=== PATIENT | female | born 1995 | race Caucasian/White ===

== ENCOUNTER → 2020-12-04 | Outpatient (CLI) | payer OTHER ==
--- NOTE | 2020-12-04 18:35 | US ---
EXAMINATION TYPE: Transabdominal DATE OF EXAM: 12/04/2020 3:51 PM COMPARISON: NONE CLINICAL HISTORY: O46.91 BLEEDING/SPOTTING. Pt states unknown dates, had spotting has now stopped, po sitive beta hCG test. EXAM PERFORMED: Transabdominal (TA) EXAM MEASUREMENTS: GESTATIONAL AGE / DATING Physician Established: Not yet established Dates by LMP: Unknown Dates by First Scan: (10 weeks/6 days) EDC: 06/26/2021 Dates by Current Scan for: (11 weeks/2 days) EDC: 06/23/2021 MATERNAL ANATOMY Uterus: 10.2 x 7.4 x 8.1 cm Right Ovary: 2.8 x 1.3 x 2.7 cm Left Ovary: 3.7 x 1.6 x 2.7 cm Post CDS / Adnexa: wnl Presence of free fluid: No Presence of corpus luteal cyst: Left Ovary= 1.9 x 1.2 x 2.0 cm Presence of subchorionic bleed: No GESTATION / SURVEY CRL: 4.4 cm (11 weeks/2 days) MSD: wnl Yolk Sac (normal less than 6mm): 5mm Heart Rate: 152 bpm Rhythm: Normal IUP: Viable IUP Nuchal Translucency 10-14wks (normal less than 3mm): 1mm Anteverted uterus. Single live intrauterine gestation as gestational sac, yolk sac, and pole ar e present. No free fluid. Both ovaries seen. No suspicious extra ovarian adnexal mass. Within the left ovary there is 1.9 cm p eripheral hypoechoic vascular lesion felt to reflect a corpus luteal cyst. IMPRESSION: Single live intrauterine gestation confirmed, mean crown-rump length 4.4 cm corresponding to 11 week 2 day old fetus.
== END ==
LOC: RADUSWWP 14:39
PROVIDERS: ATTEND Obstetrics & Gynecology
DX: O46.91 Antepartum hemorrhage, unspecified, first trimester (principal); Z3A.11 11 weeks gestation of pregnancy
CPT/HCPCS: 76801; 76813

== ENCOUNTER 2021-01-05 16:35 | Emergency (ER) | payer OTHER ==
[2021-01-05 16:54] VITALS: BP 116/67; PULSE 87; RESP 18; TEMP 99.1
--- NOTE | 2021-01-05 16:56 | ED ---
General Adult HPI <Darren Weaver - Last Filed: 01/05/21 16:52> <Mary Zacarias - Last Filed: 01/05/21 17:12> - General Stated complaint: 16 wks preg, bleeding - History of Present Illness Initial comments: 25-year-old female, , 16 weeks presents to the emergency department with a chief complaint of vaginal bleeding. Patient reports intermittent vaginal bleeding since the beginning of her . She was advised to come to the emergency department for evaluation if the bleeding continues. States the bleeding is not worse than usual at this time. States today she noticed it was bright red in color. Reports some lower abdominal cramping. (Darren Weaver) - Related Data Allergies Allergy/AdvReac Type Severity Reaction Status Date / Time No Known Allergies Allergy Verified 01/05/21 16:54 Review of Systems ROS Other: All systems not noted in ROS Statement are negative. <Darren Weaver - Last Filed: 01/05/21 16:52> ROS Other: All systems not noted in ROS Statement are negative. <Mary Zacarias - Last Filed: 01/05/21 17:12> ROS Statement: Those systems with pertinent positive or pertinent negative responses have been documented in the HPI. Course Vital Signs 01/05/21 16:51 Temperature 99.1 F Pulse Rate 87 Respiratory 18 Rate Blood Pressure 116/67 O2 Sat by Pulse 100 Oximetry Medical Decision Making <Mray Zacarias - Last Filed: 01/05/21 17:12> - Medical Decision Making The patient was seen and evaluated, history is obtained from the patient and review of medical record. female Like 15-16 weeks presenting with persistent intermittent vaginal bleeding. Patient purchased spotting at night. She is been evaluated by this one month ago but symptoms persist. She's not certain of the cause that she return to the ER for reevaluation. No heavy bleeding does not have to wear a pad. No active bleeding today. That ultrasound was performed, there is a single intrauterine fetus, fetus is active, heart rate is 142 She was reassured by these findings. She has established follow-up at the [facility] gynecology this week. Patient is comfortable with the plan for discharge home. (Mary Zacarias) Disposition <Darren Weaver - Last Filed: 01/05/21 16:52> Is patient prescribed a controlled substance at d/c from ED?: No <Mary Zacarias - Last Filed: 01/05/21 17:12> Clinical Impression: Vaginal bleeding in Disposition: HOME SELF-CARE Additional Instructions: Strict pelvic rest meaning no intercourse until you are evaluated by Gynecology Follow up at [facility] this week as scheduled Referrals: Samuel Huerta MD [Primary Care Provider] - 1-2 days
== END 2021-01-05 17:44 | disposition home or self-care (01) ==
LOC: EC 16:35
DX: O46.92 Antepartum hemorrhage, unspecified, second trimester (principal); Z3A.16 16 weeks gestation of pregnancy
CPT/HCPCS: 99283

== ENCOUNTER 2021-02-09 22:20 | Outpatient (CLI) | payer OTHER ==
[2021-02-09 22:50] VITALS: BP 114/58; PULSE 92; RESP 16; TEMP 98
[2021-02-09 23:31] LABS: Basophils # (A) 0.1 k/uL (0-0.2); Basophils % (A) 1 %; Eosinophils # (A) 0.4 k/uL (0-0.7); Eosinophils % (A) 4 %; HGB 10.4 gm/dL (11.4-16.0); Lymphocytes # (A) 2.2 k/uL (1.0-4.8); Lymphocytes % (A) 21 %; MCH 33.9 pg (25.0-35.0); MCHC 35.8 g/dL (31.0-37.0); MCV 94.6 fL (80.0-100.0); Mean Platelet Volume 7.5; Monocytes # (A) 0.5 k/uL (0-1.0); Monocytes % (A) 5 %; Neutrophils # (A) 7.4 k/uL (1.3-7.7); Neutrophils % (A) 70 %; Platelet Count 260 k/uL (150-450); RBC 3.07 m/uL (3.80-5.40); WBC 10.7 k/uL (3.8-10.6)
--- NOTE | 2021-02-09 23:56 | P.MSEPDOC ---
Presenting Problems - Arrival Data Date of Arrival on Unit: 02/09/21 Time of Arrival on Unit: 22:20 Mode of Transport: Portable - Complaint OB-Reason for Admission/Chief Complaint: Vaginal Bleeding Comment: hx placenta previa Medical History - Information : 4 Para: 3 Term: 3 : 3 Abortions: Spontaneous or Elective: 0 Number of Living Children: 3 - Gestational Age Gestational Age by SHAKEEL (wks/days): 20 Weeks and 6 Days - History Complications: Placenta Previa Review of Systems - Review of Systems Constitutional: No problems Breast: No problems ENT: No problems Cardiovascular: No problems Respiratory: No problems Gastrointestinal: No problems Genitourinary: No problems Musculoskeletal: No problems Neurological: No problems Skin: No problems Vital Signs - Temperature Temperature: 98.0 F - Pulse Right Brachial Pulse Rate: 92 Pulse Assessment Method: Automatic Cuff - Respirations Respiratory Rate: 16 Oxygen Delivery Method: Room Air O2 Sat by Pulse Oximetry: 99 - Blood Pressure Right Arm Supine Blood Pressure: 114/58 Blood Pressure Mean: 76 Blood Pressure Source: Automatic Cuff Medical Screen Scoring (Pre) - Cervical Exam Dilation: Exam Deferred Effacement: Exam Deferred Membranes: Intact - Uterine Contractions Frequency: N/A - Maternal Vital Signs Maternal Temperature: N/A - Maternal Trauma Maternal Trauma: N/A - Assessment - Baby A Baseline FHR: 150 - Total Score - Baby A Total Score - Baby A: 0 - Total Score - Baby B Total Score - Baby B: 0 - Total Score - Baby C Total Score - Baby C: 0 - Level of Risk - Baby A Level of Risk - Baby A: Low (0-5) - Level of Risk - Baby B Level of Risk - Baby B: Low (0-5) - Level of Risk - Baby C Level of Risk - Baby C: Low (0-5) Physician Notification (Pre) - Physician Notified Physician Notified Date: 02/09/21 Physician Notified Time: 22:30 - Notification Comment Comment: U/S Medical Screen Scoring (Post) - Cervical Exam Dilation: Exam Deferred Effacement: Exam Deferred - Uterine Contractions Frequency: N/A - Maternal Vital Signs Maternal Temperature: N/A - Pain Assessment Pain Intensity: 0 Pain Behavior: None Exhibited - Assessment - Baby A Heart Rate: 140 - Total Score Total Score - Baby A: 0 Total Score - Baby B: 0 Total Score - Baby C: 0 - Post Treatment Level of Risk Post Treatment Level of Risk - Baby A: Low (0-5) Post Treatment Level of Risk - Baby B: Low (0-5) Post Treatment Level of Risk - Baby C: Low (0-5) Physician Notification (Post) - Physician Notified Physician Notified Date: 02/09/21 Physician Notified Time: 23:35 Physician/Practitioner Notified:: Deanna Spoke With: Deanna New Order Received: Yes - Notification Comment Comment: HgB result given Disposition - Disposition OB Disposition: Discharge to home Discharge Date: 02/09/21 Discharge Time: 23:40 I agree with the RN Medical Screening Exam: Yes Case reviewed; plan agreed upon as documented in EMR&OBIX.: Yes Diagnosis: COMPLETE PLACENTA PREVIA WITH HEMORRHAGE, SECOND TRIMESTER (Patient presents to labor and delivery after calling me earlier this evening with complaints of vaginal bleeding. Patient has a known complete placenta previa. Gestational age is 20-6/7 weeks. Patient's had on and off bleeding throughout the . Patient states that she had not had much bleeding until this evening when she had an episode of throwing up and began having some copious amount of bleeding. Examination here by myself shows minimal amount of bleeding or some dark red blood on her pad. Globin is 10.4. This point there is no evidence of ongoing hemorrhage bowel asked her to continue pelvic rest at home. She'll follow up with Dr. Whiting this Tuesday.)
== END 2021-02-09 23:40 | disposition home or self-care (01) ==
LOC: FBPOP 22:20
PROVIDERS: ATTEND Obstetrics & Gynecology
DX: O44.12 Complete placenta previa with hemorrhage, second trimester (principal); Z3A.20 20 weeks gestation of pregnancy
CPT/HCPCS: 85025; G0463; 99215

== ENCOUNTER 2021-03-09 18:14 | Outpatient (CLI) | payer OTHER ==
[2021-03-09 18:34] LABS: Glucose,Whole Blood 86 mg/dL (75-99)
[2021-03-09] MEDS: LACTATED RINGERS 1,000 ML IV SCH ×2 (18:54→19:47)
[2021-03-09 19:29] LABS: Appearance,Urine Cloudy (Clear); Bacteria,Urine Rare /hpf; Bilirubin,Urine Negative (Negative); Blood,Urine Negative (Negative); Budding Yeast,Urine Few /hpf; Color,Urine Yellow; Glucose,Urine (UA) Negative (Negative); Ketones,Urine 2+ (Negative); Leukocyte Esterase,Urine Trace (Negative); Mucus,Urine Many /hpf; Nitrite,Urine Negative (Negative); PH, Urine 7.5 (5.0-8.0); Protein,Urine Trace (Negative); RBC,Urine 5 /hpf (0-5); Specific Gravity,Urine 1.018 (1.001-1.035); Squamous Epithelial Cell,Urine 1 /hpf (0-4); WBC,Urine 9 /hpf (0-5)
[2021-03-09 20:48] VITALS: BP 120/73; PULSE 73; RESP 16; TEMP 98.7
--- NOTE | 2021-03-09 21:30 | P.MSEPDOC ---
Presenting Problems - Arrival Data Date of Arrival on Unit: 03/09/21 Time of Arrival on Unit: 18:14 Mode of Transport: Ambulatory - Complaint OB-Reason for Admission/Chief Complaint: Ant Bleeding Comment: Patient presents to triage with a bleeding after she threw up today. Patient. noted some bleeding after she threw up today. Denies leaking of fluid. Patient states. she noted the bleeding around 1500 today so she called the office and they told her to. go to Labor and Delivery. RN at [facility] called around 1530 to report that. patient would be coming to the unit in approximately 1 hour. Medical History - Information : 4 Para: 2 Term: 2 : 0 Abortions: Spontaneous or Elective: 0 Number of Living Children: 2 - Gestational Age Gestational Age by SHAKEEL (wks/days): 24 Weeks and 4 Days - History Complications: Placenta Previa Review of Systems - Review of Systems Constitutional: No problems Breast: No problems ENT: No problems Cardiovascular: No problems Respiratory: No problems Gastrointestinal: No problems Genitourinary: No problems Musculoskeletal: No problems Neurological: No problems Skin: No problems Vital Signs - Temperature Temperature: 98.7 F Temperature Source: Oral - Pulse Right Brachial Pulse Rate: 73 Pulse Assessment Method: Automatic Cuff - Respirations Respiratory Rate: 16 Oxygen Delivery Method: Room Air - Blood Pressure Right Arm Blood Pressure: 120/73 Blood Pressure Mean: 88 Blood Pressure Source: Automatic Cuff Medical Screen Scoring (Pre) - Cervical Exam Dilation: Exam Deferred Effacement: Exam Deferred Membranes: Intact - Uterine Contractions Frequency: N/A Duration: N/A Intensity: N/A - Maternal Vital Signs Maternal Temperature: N/A Signs of Preeclampsia: N/A Maternal Respirations: N/A - Maternal Trauma Maternal Trauma: N/A - Assessment - Baby A Baseline FHR: 135 Heart Rate - NICHD Category: Category I (Normal) = 0 - Total Score - Baby A Total Score - Baby A: 0 - Total Score - Baby B Total Score - Baby B: 0 - Total Score - Baby C Total Score - Baby C: 0 - Level of Risk - Baby A Level of Risk - Baby A: Low (0-5) - Level of Risk - Baby B Level of Risk - Baby B: Low (0-5) - Level of Risk - Baby C Level of Risk - Baby C: Low (0-5) Physician Notification (Pre) - Physician Notified Physician Notified Date: 03/09/21 Physician Notified Time: 18:44 New Order Received: Yes - Notification Comment Comment: [id number] Dr Bansal called, report given re: pt complaints incl vomiting and vaginal. bleeding today, gentle spec exam with no bleeding noted, fhr & contraction pattern. Order received for IV hydration and UA. 1942 Orders to give pt another bag of LR and then she may be d/c home and follow up as planned. Disposition - Disposition OB Disposition: Discharge to home, Written follow up instructions reviewed Discharge Date: 03/09/21 Discharge Time: 20:40 I agree with the RN Medical Screening Exam: Yes Case reviewed; plan agreed upon as documented in EMR&OBIX.: Yes Diagnosis: VOMITING OF , UNSPECIFIED Additional Diagnoses: Placenta previa Spotting
== END 2021-03-09 20:37 | disposition home or self-care (01) ==
LOC: FBPOP 18:14
PROVIDERS: ATTEND Obstetrics & Gynecology
DX: O21.9 Vomiting of pregnancy, unspecified (principal); O44.12 Complete placenta previa with hemorrhage, second trimester; Z3A.24 24 weeks gestation of pregnancy
CPT/HCPCS: 96360; 96361; 81001; G0463; 99214

== ENCOUNTER 2021-06-18 06:00 | Inpatient (IN) | payer OTHER ==
[2021-06-18] MEDS ORDERED: OXYTOCIN 10 UNIT/ML 1 ML VIAL IM PRN (06:52)
[2021-06-18] MEDS ORDERED: TERBUTALINE 1 MG/ML VIAL SQ PRN (06:52)
[2021-06-18] MEDS ORDERED: AMPICILLIN 2,000 MG in SODIUM CHLORIDE 0.9% 100 ML IVPB STA (06:52)
[2021-06-18] MEDS ORDERED: LIDOCAINE 0.5% (PF) 5 MG/ML (50 ML SDV) SQ PRN (06:52)
[2021-06-18] MEDS ORDERED: CARBOPROST TROMETHAMINE 250 MCG/ML 1 ML AMP IM PRN (06:52)
[2021-06-18] MEDS ORDERED: METHYLERGONOVINE 0.2 MG/ML 1 ML AMP IM PRN (06:52)
[2021-06-18] MEDS: LACTATED RINGERS 1,000 ML IV SCH ×2 (07:08→10:08)
[2021-06-18 07:09] LABS: Basophils # (A) 0.1 k/uL (0-0.2); Basophils % (A) 1 %; Eosinophils # (A) 0.3 k/uL (0-0.7); Eosinophils % (A) 2 %; HCT 36.4 % (34.0-46.0); HGB 12.9 gm/dL (11.4-16.0); Lymphocytes # (A) 2.5 k/uL (1.0-4.8); Lymphocytes % (A) 18 %; MCH 34.1 pg (25.0-35.0); MCHC 35.4 g/dL (31.0-37.0); MCV 96.3 fL (80.0-100.0); Mean Platelet Volume 8.7; Monocytes # (A) 0.6 k/uL (0-1.0); Monocytes % (A) 4 %; Neutrophils # (A) 10.3 k/uL (1.3-7.7); Neutrophils % (A) 74 %; Platelet Count 234 k/uL (150-450); RBC 3.78 m/uL (3.80-5.40); RDW 12.4 % (11.5-15.5)
[2021-06-18] MEDS: OXYTOCIN 30 UNITS/500 ML NS 30 UNIT in SALINE 1 500ML.BAG IV SCH ×2 (07:09→11:41)
[2021-06-18] MEDS ORDERED: fentaNYL (PF) 50 MCG/ML 5 ML AMP ONE (10:33)
[2021-06-18] MEDS ORDERED: SODIUM CHLORIDE 0.9% 100 ML BAG ONE (10:33)
[2021-06-18] MEDS ORDERED: ROPIVACAINE 5MG/ML 20ML VIAL ONE (10:33)
[2021-06-18] MEDS ORDERED: AMPICILLIN 1,000 MG in SODIUM CHLORIDE 0.9% 50 ML IVPB SCH (11:00)
[2021-06-18] MEDS ORDERED: LANOLIN CREAM 5 GM TUBE TOPICAL PRN (11:27)
[2021-06-18] MEDS ORDERED: ACETAMINOPHEN TAB 325 MG TAB PO PRN (11:27)
[2021-06-18] MEDS ORDERED: HYDROCORTISONE 2.5% RECTAL CREAM 30 GM TUBE RECTAL PRN (11:27)
[2021-06-18] MEDS ORDERED: diphenhydrAMINE 25 MG CAP PO PRN (11:27)
[2021-06-18] MEDS ORDERED: diphenhydrAMINE 50 MG CAP PO PRN (11:27)
[2021-06-18] MEDS ORDERED: ZOLPIDEM 5 MG TAB PO PRN (11:27)
[2021-06-18] MEDS ORDERED: BENZOCAINE/MENTHOL SPRAY 1 GM/SPRAY AEROSOL TOPICAL PRN (11:27)
[2021-06-18] MEDS ORDERED: diphenhydrAMINE 50 MG/ML 1 ML VIAL IVP PRN ×2 (11:27)
[2021-06-18] MEDS ORDERED: SIMETHICONE 80 MG CHEWABLE PO PRN (11:27)
--- NOTE | 2021-06-18 11:30 | P.HPOB ---
History of Present Illness H&P Date: 06/18/21 Chief Complaint: Intrauterine at term: Induction of labor Alexandra is a 25-year-old at 39 weeks gestation arise for induction of labor. Her course was, K by a marginal previa that resolved. She did see maternal medicine for same but she was not seen once it resolved. The remainder for Precis course generally was unremarkable. She did have a small for gestational age baby to a certain degree but the last ultrasound was at 19% growth. All questions are answered for her prior to proc she is dilated to 3 cm 80% effaced -2 station artificial rupture membranes was performed and clear fluid is noted. We'll also plan Pitocin augmentation of labor. Past Medical History Past Medical History: No Reported History History of Any Multi-Drug Resistant Organisms: None Reported Past Surgical History: Cholecystectomy, Tonsillectomy Past Anesthesia/Blood Transfusion Reactions: No Reported Reaction Past Psychological History: No Psychological Hx Reported Smoking Status: Never smoker Past Alcohol Use History: Unable to Obtain Past Drug Use History: None Reported Medications and Allergies Home Medications Medication Instructions Recorded Confirmed Type Pnv No.95/Ferrous Fum/Folic AC 1 each PO DAILY 02/09/21 06/18/21 History [ Multivitamin Tablet] Allergies Allergy/AdvReac Type Severity Reaction Status Date / Time No Known Allergies Allergy Verified 06/18/21 06:45 Exam Osteopathic Statement: *. No significant issues noted on an osteopathic structural exam other than those noted in the History and Physical/Consult. Vital Signs Temp Pulse Resp BP 06/18/21 06:44 98.3 F 88 16 130/79 Intake and Output 06/17/21 06/18/21 06/18/21 22:59 06:59 14:59 Other: Weight 53.977 kg - OBG Physical Exam Breast: both: normal (no masses) Abdomen: bowel sounds normal, no diffuse tenderness, no bruit present, no guarding noted, no hepatomegaly, no splenomegaly, no mass Vulva: both: normal Vagina: normal moisture, no discharge Cervix: no lesion, no discharge Uterus: normal size, normal contour Adnexa: both: normal Anus/Rectum: normal perianal skin, no rectal mass, no hemorrhoids, heme negative Results Result Diagrams: 06/18/21 06:50 Abnormal Lab Results - Last 24 Hours (Table) 06/18/21 Range/Units 06:50 WBC 14.0 H (3.8-10.6) k/uL RBC 3.78 L (3.80-5.40) m/uL Neutrophils # 10.3 H (1.3-7.7) k/uL
--- NOTE | 2021-06-18 11:32 | P.PROBDLV ---
Vaginal Delivery Note - . Vaginal Delivery Note: Alexandra progressed to complete and pushing with spontaneous vaginal delivery of a viable male over an intact perineum. Following delivery of the head from left occiput anterior position a nuchal cord 1 was noted and easily reduced. Anterior posterior shoulders were then easily delivered followed by the remainder the baby. Mouth nares were then bulb suctioned baby was placed on mother's abdomen where the umbilical cord was allowed to pulsate for 30 seconds prior to clamping and cutting. Once is accomplished nursery personnel was present at [facility]. Placenta was then delivered intact Pitocin was added to the IV. There is some increase in bleeding initially but seems to of abated and the uterus is firm and well below the umbilicus. We'll continue to monitor this closely. scores were 9 and 9 at one and 5 minutes [place] and the weight was 6 lbs. 15 oz.
[2021-06-18] MEDS: IBUPROFEN 600 MG TAB PO SCH ×3 (11:41→22:30)
[2021-06-18] MEDS ORDERED: ONDANSETRON ODT 4 MG TAB PO PRN (17:26)
[2021-06-18] MEDS: SENNOSIDES-DOCUSATE SODIUM 1 EACH TAB PO SCH (22:30)
[2021-06-19 07:04] LABS: Basophils # (A) 0.1 k/uL (0-0.2); Basophils % (A) 1 %; Eosinophils # (A) 0.3 k/uL (0-0.7); Eosinophils % (A) 2 %; HCT 27.2 % (34.0-46.0); Lymphocytes # (A) 2.6 k/uL (1.0-4.8); Lymphocytes % (A) 16 %; MCH 34.8 pg (25.0-35.0); MCHC 35.5 g/dL (31.0-37.0); MCV 97.9 fL (80.0-100.0); Mean Platelet Volume 8.8; Monocytes # (A) 0.8 k/uL (0-1.0); Monocytes % (A) 5 %; Neutrophils # (A) 12.5 k/uL (1.3-7.7); Neutrophils % (A) 76 %; Platelet Count 209 k/uL (150-450); RBC 2.77 m/uL (3.80-5.40); RDW 12.6 % (11.5-15.5); WBC 16.6 k/uL (3.8-10.6)
[2021-06-19 07:15] LABS: HGB 9.7 gm/dL (11.4-16.0)
[2021-06-19] MEDS: IBUPROFEN 600 MG TAB PO SCH ×3 (08:12→23:11)
[2021-06-19] MEDS: SENNOSIDES-DOCUSATE SODIUM 1 EACH TAB PO SCH ×2 (08:12→19:54)
--- NOTE | 2021-06-19 08:12 | P.PNOBGVD ---
Subjective - Subjective Principal diagnosis: day 1 Interval history: Patient is doing very well this morning. She is ambulating, voiding tolerating her diet. She is voicing no complaints. Baby is doing well. Baby did not receive 2 doses and about expect for group B strep prophylaxis and will therefore kept until tomorrow. Plan circumcision today and return for Motrin and breast pump were provided. All the questions are answered for this time. She is stable this time. Continue current care. Patient reports: Reports appetite normal, Reports voiding normally, Reports pain well controlled, Reports ambulating normally : doing well Objective - Latest Vital Signs Latest vital signs: Vital Signs Temp Pulse Resp BP 06/19/21 04:00 98.4 F 75 8 L 119/77 06/19/21 00:00 98.3 F 84 18 120/77 06/18/21 20:00 98.4 F 77 18 119/76 06/18/21 15:56 98.7 F 76 16 100/63 06/18/21 13:30 98.0 F 77 18 116/57 06/18/21 12:37 98.3 F 71 18 117/70 06/18/21 12:30 97.1 F L 65 18 115/69 06/18/21 12:15 97.3 F L 66 18 110/58 06/18/21 12:00 97.1 F L 73 18 109/70 06/18/21 11:45 97.0 F L 76 18 126/60 06/18/21 11:30 97.3 F L 95 18 142/63 Intake and Output 06/18/21 06/19/21 06/19/21 22:59 06:59 14:59 Other: # Voids 1 2 - Labs Labs: Abnormal Lab Results - Last 24 Hours (Table) 06/19/21 Range/Units 06:48 WBC 16.6 H (3.8-10.6) k/uL RBC 2.77 L (3.80-5.40) m/uL Hgb 9.7 L D (11.4-16.0) gm/dL Hct 27.2 L (34.0-46.0) % Neutrophils # 12.5 H (1.3-7.7) k/uL
[2021-06-19 09:28] VITALS: RESP 16
[2021-06-20 08:04] VITALS: BP 131/65; PULSE 74; TEMP 98.1
--- NOTE | 2021-06-20 09:58 | P.DS ---
Providers Date of admission: 06/18/21 06:33 Expected date of discharge: 06/20/21 Attending physician: Tanmay Rosa Primary care physician: Stated None - Discharge Diagnosis(es) (1) Normal vaginal delivery Current Visit: Yes Status: Acute Hospital Course: She presented for induction of labor. She underwent a normal vaginal delivery. Her course was uncomplicated. She denies nausea, vomiting, chest pain, shortness of breath or any calf pain. She'll be discharged home day #2 in stable condition to follow-up with Dr. Whiting in 6 weeks. Plan - Discharge Summary Discharge Rx Participant: No New Discharge Prescriptions: New Ibuprofen [Motrin] 600 mg PO Q6HR PRN #30 tab PRN Reason: Pain No Action Pnv No.95/Ferrous Fum/Folic AC [ Multivitamin Tablet] 1 each PO DAILY Discharge Medication List Pnv No.95/Ferrous Fum/Folic AC [ Multivitamin Tablet] 1 each PO DAILY 02/09/21 [History] Ibuprofen [Motrin] 600 mg PO Q6HR PRN #30 tab 06/19/21 [Rx] Follow up Appointment(s)/Referral(s): Tanmay Rosa DO [Doctor of Osteopathic Medicine] - 07/27/21 11:00 am Activity/Diet/Wound Care/Special Instructions: Lifting, limit stairs and driving, and pelvic rest. If any high temperatures, heavy bleeding, or severe pain call my office Discharge Disposition: HOME SELF-CARE
== END 2021-06-20 11:30 | disposition home or self-care (01) | DRG 807 ==
LOC: 4FBP 06:33
PROVIDERS: ADMIT Obstetrics & Gynecology; ATTEND Obstetrics & Gynecology
PROC: 10E0XZZ Delivery of Products of Conception, External Approach (ICD-10-PCS; principal; 2021-06-18)
DX: O36.5930 Maternal care for other known or suspected poor fetal growth, third trimester, not applicable or unspecified (principal); Z37.0 Single live birth; Z3A.39 39 weeks gestation of pregnancy; O69.81X0 Labor and delivery complicated by cord around neck, without compression, not applicable or unspecified
CPT/HCPCS: 85025; 86850; 86900; 86901

== ENCOUNTER 2023-03-08 09:59 | Emergency (ER) | payer OTHER ==
[2023-03-08 10:04] VITALS: BP 136/90; PULSE 93; RESP 20; TEMP 98.4
[2023-03-08] MEDS ORDERED: SODIUM CHLORIDE 0.9% 1,000 ML IV ONE (10:51)
[2023-03-08 11:43] LABS: Basophils # (A) 0.1 k/uL (0-0.2); Basophils % (A) 1 %; Eosinophils # (A) 0.1 k/uL (0-0.7); Eosinophils % (A) 1 %; HCT 43.8 % (34.0-46.0); HGB 14.6 gm/dL (11.4-16.0); Lymphocytes # (A) 2.3 k/uL (1.0-4.8); Lymphocytes % (A) 15 %; MCH 32.7 pg (25.0-35.0); MCHC 33.3 g/dL (31.0-37.0); MCV 98.4 fL (80.0-100.0); Mean Platelet Volume 7.6; Monocytes # (A) 0.4 k/uL (0-1.0); Monocytes % (A) 3 %; Neutrophils % (A) 80 %; Platelet Count 332 k/uL (150-450); RBC 4.45 m/uL (3.80-5.40); RDW 11.7 % (11.5-15.5)
[2023-03-08 11:46] LABS: ALT 21 U/L (4-34); AST 32 U/L (14-36); African American GFR (CKD) >90 (>60 ml/min/1.73 sqM); Alkaline Phosphatase 89 U/L (38-126); Anion Gap 13 mmol/L; Blood Urea Nitrogen 9 mg/dL (7-17); Calcium 9.5 mg/dL (8.4-10.2); Carbon Dioxide 25 mmol/L (22-30); Chloride 101 mmol/L (98-107); Glucose 107 mg/dL (74-99); Non-African American GFR(CKD) >90 (>60 ml/min/1.73 sqM); Potassium 3.8 mmol/L (3.5-5.1); Sodium 139 mmol/L (137-145); Total Bilirubin 0.6 mg/dL (0.2-1.3); Total Protein 8.1 g/dL (6.3-8.2)
--- NOTE | 2023-03-08 12:06 | ED ---
General Adult HPI - General Chief complaint: Vaginal Bleeding Stated complaint: Vaginal bleeding Time Seen by Provider: 03/08/23 10:51 Source: patient, RN notes reviewed Mode of arrival: ambulatory Limitations: no limitations - History of Present Illness Initial comments: 27-year-old female who is to presents to the emergency department with a chief complaint of vaginal bleeding. Patient reports that she is approximately 6-7 weeks . she is reporting vaginal bleeding for the last 3 days. She reports it was light and has since heavier. She has passed one small clot. She denies any dizziness, lightheadedness, chest pain, s hortness of breath, nausea, vomiting. She is complaining of intermittent right lower quadrant abdominal pain that is sharp. She reports no Primary OBGYN . She reports last menstrual period dates of 01/22/2023. denies injury or trauma - Related Data Home Medications Medication Instructions Recorded Confirmed No Known Home Medications 03/08/23 03/08/23 Allergies Allergy/AdvReac Type Severity Reaction Status Date / Time No Known Allergies Allergy Verified 03/08/23 12:44 Review of Systems ROS Statement: Those systems with pertinent positive or pertinent negative responses have been documented in the HPI. ROS Other: All systems not noted in ROS Statement are negative. Past Medical History Past Medical History: No Reported History History of Any Multi-Drug Resistant Organisms: None Reported Past Surgical History: Cholecystectomy, Tonsillectomy Past Anesthesia/Blood Transfusion Reactions: No Reported Reaction Past Psychological History: No Psychological Hx Reported Smoking Status: Current every day smoker Past Alcohol Use History: Occasional Past Drug Use History: None Reported General Exam - General Exam Comments Initial Comments: General: Alert, in no acute distress Head: atraumatic normocephalic. Eyes PERRL, EOMI intact, mucous membranes moist Respiratory: Lungs clear to auscultation bilaterally Cardiovascular: rate regular rate and rhythm Abdominal: Soft without guarding or rebound Extremities: Normal inspection with full range of motion and normal capillary refill Neuroogic: alert and oriented 3, CN II-XII intact, able to ambulate with steady gait Skin: warm dry and intact with normal color : external exam is without any rashes, lesions, erythema. Vaginal canal with small amount are dark blood in the vaginal vault that is easily cleared. Cervical os is visualized and is closed. There is no cervical motion tenderness for abnormal adnexal tenderness. Pelvic exam performed with Diana moseley RN present. Limitations: no limitations Course Vital Signs 03/08/23 10:00 Temperature 98.4 F Pulse Rate 93 Respiratory 20 Rate Blood Pressure 136/90 O2 Sat by Pulse 99 Oximetry Medical Decision Making - Medical Decision Making Was pt. sent in by a medical professional or institution (ROSINA Bautista, WORKFLOW DEVELOPER, urgent care, hospital, or assisted...) When possible be specific @ -[No] Did you speak to anyone other than the patient for history (EMS, parent, family, police, friend...)? What history was obtained from this source @ -[No] Did you review nursing and triage notes (agree or disagree)? Why? @ -[I reviewed and agree with nursing and triage notes] Were old charts reviewed (outside hosp., previous admission, EMS record, old EKG, old radiological studies, urgent care reports/EKG's, assisted records)? Report findings @ -[No old charts were reviewed] Differential Diagnosis (chest pain, altered mental status, abdominal pain women, abdominal pain men, vaginal bleeding, weakness, fever, dyspnea, syncope, headache, dizziness, GI bleed, back pain, seizure, CVA, palpatations, mental health, musculoskeletal)? @ -[not applicable] EKG interpreted by me (3pts min.). @ -[As above] X-rays interpreted by me (1pt min.). @ -[None done] CT interpreted by me (1pt min.). @ -[None done] U/S interpreted by me (1pt. min.). @ -vaginal ultrasound does not show an intrauterine at this time. What testing was considered but not performed or refused? (CT, X-rays, U/S, labs)? Why? @ -[None] What meds were considered but not given or refused? Why? @ -[None] Did you discuss the management of the patient with other professionals (professionals i.e. ROSINA Bautista, WORKFLOW DEVELOPER, lab, RT, psych nurse, social sciences lecturer, product development carpenter, teacher, access control officer, showcase maker)? Give summary @ -[No] Was smoking cessation discussed for >3mins.? @ -[No] Was critical care preformed (if so, how long)? @ -[No] Were there social determinants of health that impacted care today? How? (Homelessness, low income, unemployed, alcoholism, drug addiction, transportation, low edu. Level, literacy, decrease access to med. care, prison, rehab)? @ -[No] Was there de-escalation of care discussed even if they declined (Discuss DNR or withdrawal of care, Hospice)? DNR status @ -[No] What co-morbidities impacted this encounter? (DM, HTN, Smoking, COPD, CAD, Cancer, CVA, ARF, Chemo, Hep., AIDS, mental health diagnosis, sleep apnea, morbid obesity)? @ -[None] Was patient admitted / discharged? Hospital course, mention meds given and route, prescriptions, significant lab abnormalities, going to OR and other pertinent info. @ -Discharge. This is a 27 year-old female who presents the emergency department with vaginal bleeding.. Patient had a thorough history and physical exam performed while in the ED. Physical exam reveals scant amount of dark red blood in the vaginal vault. Cervical os is closed. No adnexal tenderness. Patient had lab work and imaging performed. HCG total beta results 600. Ultrasound does not reveal an intrauterine at this time.I discussed the results in detail with the patient verbalized understanding and all questions were addressed. she was given a prescription for beta hCG to be drawn within 48 hours. She was given a list of CHEMICAL HANDLER within the area. Return precautions were discussed at length. Patient will be discharged in stable co ndition. Case discussed with BERNARDA Bolivar who agrees with plan of care. Undiagnosed new problem with uncertain prognosis? @ -[No] Drug Therapy requiring intensive monitoring for toxicity (Heparin, Nitro, Insulin, Cardizem)? @ -[No] Were any procedures done? @ -[No] Diagnosis/symptom? @ -vaginal bleeding - Early VS. threatened miscarriage Acute, or Chronic, or Acute on Chronic? @ -Acute Uncomplicated (without systemic symptoms) or Complicated (systemic symptoms)? @ -uncomplicated Side effects of treatment? @ -[No] Exacerbation, Progression, or Severe Exacerbation? @ -[No] Poses a threat to life or bodily function? How? (Chest pain, [place], [place], pneumonia, PE, COPD, DKA, ARF, appy, cholecystitis, CVA, Diverticulitis, Homicidal, Suicidal, threat to staff... and all critical care pts) @ -Low likelihood - Lab Data Result diagrams: 06/06/23 11:21 03/08/23 11:21 Lab Results 03/08/23 03/08/23 03/08/23 Range/Units 11:20 11:21 11:21 WBC 15.0 H (3.8-10.6) k/uL RBC 4.45 (3.80-5.40) m/uL Hgb 14.6 (11.4-16.0) gm/dL Hct 43.8 (34.0-46.0) % MCV 98.4 (80.0-100.0) fL MCH 32.7 (25.0-35.0) pg MCHC 33.3 (31.0-37.0) g/dL RDW 11.7 (11.5-15.5) % Plt Count 332 (150-450) k/uL MPV 7.6 Neutrophils % 80 % Lymphocytes % 15 % Monocytes % 3 % Eosinophils % 1 % Basophils % 1 % Neutrophils # 12.0 H (1.3-7.7) k/uL Lymphocytes # 2.3 (1.0-4.8) k/uL Monocytes # 0.4 (0-1.0) k/uL Eosinophils # 0.1 (0-0.7) k/uL Basophils # 0.1 (0-0.2) k/uL Sodium 139 (137-145) mmol/L Potassium 3.8 (3.5-5.1) mmol/L Chloride 101 (98-107) mmol/L Carbon Dioxide 25 (22-30) mmol/L Anion Gap 13 mmol/L BUN 9 (7-17) mg/dL Creatinine 0.57 (0.52-1.04) mg/dL Est GFR (CKD-EPI)AfAm >90 (>60 ml/min/1.73 sqM) Est GFR (CKD-EPI)NonAf >90 (>60 ml/min/1.73 sqM) Glucose 107 H (74-99) mg/dL Calcium 9.5 (8.4-10.2) mg/dL Total Bilirubin 0.6 (0.2-1.3) mg/dL AST 32 (14-36) U/L ALT 21 (4-34) U/L Alkaline Phosphatase 89 (38-126) U/L Total Protein 8.1 (6.3-8.2) g/dL Albumin 5.0 (3.5-5.0) g/dL HCG, Quant 603.0 mIU/mL Urine Color Urine Appearance (Clear) Urine pH (5.0-8.0) Ur Specific [place] (1.001-1.035) Urine Protein (Negative) Urine Glucose (UA) (Negative) Urine Ketones (Negative) Urine Blood (Negative) Urine Nitrite (Negative) Urine Bilirubin (Negative) Urine Urobilinogen (<2.0) mg/dL Ur Leukocyte Esterase (Negative) Urine RBC (0-5) /hpf Urine WBC (0-5) /hpf Urine WBC Clumps (None) /hpf Ur Squamous Epith Cells (0-4) /hpf Urine Bacteria (None) /hpf Urine Mucus (None) /hpf Blood Type B Positive Blood Type Recheck B Pos Bld Type Recheck Status No 03/08/23 Range/Units 11:29 WBC (3.8-10.6) k/uL RBC (3.80-5.40) m/uL Hgb (11.4-16.0) gm/dL Hct (34.0-46.0) % MCV (80.0-100.0) fL MCH (25.0-35.0) pg MCHC (31.0-37.0) g/dL RDW (11.5-15.5) % Plt Count (150-450) k/uL MPV Neutrophils % % Lymphocytes % % Monocytes % % Eosinophils % % Basophils % % Neutrophils # (1.3-7.7) k/uL Lymphocytes # (1.0-4.8) k/uL Monocytes # (0-1.0) k/uL Eosinophils # (0-0.7) k/uL Basophils # (0-0.2) k/uL Sodium (137-145) mmol/L Potassium (3.5-5.1) mmol/L Chloride (98-107) mmol/L Carbon Dioxide (22-30) mmol/L Anion Gap mmol/L BUN (7-17) mg/dL Creatinine (0.52-1.04) mg/dL Est GFR (CKD-EPI)AfAm (>60 ml/min/1.73 sqM) Est GFR (CKD-EPI)NonAf (>60 ml/min/1.73 sqM) Glucose (74-99) mg/dL Calcium (8.4-10.2) mg/dL Total Bilirubin (0.2-1.3) mg/dL AST (14-36) U/L ALT (4-34) U/L Alkaline Phosphatase (38-126) U/L Total Protein (6.3-8.2) g/dL Albumin (3.5-5.0) g/dL HCG, Quant mIU/mL Urine Color Light Red Urine Appearance Cloudy H (Clear) Urine pH 6.0 (5.0-8.0) Ur Specific [place] 1.015 (1.001-1.035) Urine Protein 2+ H (Negative) Urine Glucose (UA) Negative (Negative) Urine Ketones Negative (Negative) Urine Blood Large H (Negative) Urine Nitrite Positive H (Negative) Urine Bilirubin Negative (Negative) Urine Urobilinogen <2.0 (<2.0) mg/dL Ur Leukocyte Esterase Large H (Negative) Urine RBC >182 H (0-5) /hpf Urine WBC 115 H (0-5) /hpf Urine WBC Clumps Few H (None) /hpf Ur Squamous Epith Cells 17 H (0-4) /hpf Urine Bacteria Many H (None) /hpf Urine Mucus Occasional H (None) /hpf Blood Type Blood Type Recheck Bld Type Recheck Status Disposition Clinical Impression: Vaginal bleeding Disposition: HOME SELF-CARE Condition: Stable Instructions (If sedation given, give patient instructions): Threatened Miscarriage (ED) Additional Instructions: please get serial hCG drawn in 48 hours Please return to the nearest emergency department if symptoms worsen or persist Is patient prescribed a controlled substance at d/c from ED?: No Referrals: None,Stated [Primary Care Provider] - 1-2 days Karli Bansal DO [Doctor of Osteopathic Medicine] - 1-2 days Lizbeth Wallace MD [STAFF PHYSICIAN] - 1-2 days Diane Guadarrama DO [Doctor of Osteopathic Medicine] - 1-2 days Time of Disposition: 12:23
[2023-03-08 12:09] LABS: Appearance,Urine Cloudy (Clear); Bacteria,Urine Many /hpf; Bilirubin,Urine Negative (Negative); Blood,Urine Large (Negative); Color,Urine Light Red; Glucose,Urine (UA) Negative (Negative); Ketones,Urine Negative (Negative); Leukocyte Esterase,Urine Large (Negative); Mucus,Urine Occasional /hpf; Nitrite,Urine Positive (Negative); Protein,Urine 2+ (Negative); RBC,Urine >182 /hpf (0-5); Specific Gravity,Urine 1.015 (1.001-1.035); Squamous Epithelial Cell,Urine 17 /hpf (0-4); Urobilinogen,Urine <2.0 mg/dL (<2.0); WBC,Urine 115 /hpf (0-5)
--- NOTE | 2023-03-08 12:24 | US ---
EXAMINATION TYPE: Ultrasound OB <= 14 weeks transvaginal DATE OF EXAM: 03/08/2023 11:50 AM COMPARISON: NONE CLINICAL INDICATION: Female, 27 years old with history of bleeding in ; EXAM PERFORMED: Transvaginal (TV) and Transabdominal (TA) EXAM MEASUREMENTS: GESTATIONAL AGE / DATING Physician Established: Not yet established ) Dates by LMP: 01/22/2023 (6 weeks/3 days) EDC: 10/29/2023 Dates by First Scan: No previous this is first scan Dates by Current Scan for: Unable to date by today's study MATERNAL ANATOMY Uterus: 8.2 x 4.4 x 5.7 cm Right Ovary: 3.3 x 1.9 x 3.1 cm Left Ovary: 2.8 x 1.8 x 2.4 cm Post CDS / Adnexa: wnl Presence of free fluid: none Presence of corpus luteal cyst: mixed lesion right ovary measures 1.7 x 1.2 cm GESTATION / SURVEY MSD: 0.4 cm (out of range ) Date of LMP: 01/22/2023 Beta HcG (if available): not available Tiny 4 mm fluid locule centered within the endometrium of the mid uterine body. Possible gestational sac that measures out of range/too early. Probable corpus luteal cyst right ovary. IMPRESSION: Tiny 4 mm fluid locule along the central endometrium, out of range for measurements. No yolk sac or f etal pole. Differential considerations include normal early intrauterine , failed , and pseudogestational sac of a nonvisualized ectopic . Recommend serial beta-hCG and ultras ound follow-up to ensure the appearance of a normal with cardiac activity.
== END 2023-03-08 13:26 | disposition home or self-care (01) ==
LOC: EC 09:59
DX: O20.9 Hemorrhage in early pregnancy, unspecified (principal); O99.331 Smoking (tobacco) complicating pregnancy, first trimester; F17.200 Nicotine dependence, unspecified, uncomplicated; Z3A.01 Less than 8 weeks gestation of pregnancy
CPT/HCPCS: 36415; 76801; 76817; 80053; 81001; 84702; 85025; 86900; 86901; 99284

== ENCOUNTER → 2023-03-10 | Outpatient (CLI) | payer OTHER | END | disposition home or self-care (01) | LOC: LABMAIN 16:42 | PROVIDERS: ATTEND Student in an Organized Health Care Education/Training Program | DX: O20.0 Threatened abortion (principal); Z3A.00 Weeks of gestation of pregnancy not specified | CPT/HCPCS: 84702 ==

== ENCOUNTER 2023-03-12 15:24 | Emergency (ER) | payer OTHER ==
[2023-03-12] MEDS ORDERED: MORPHINE SULFATE 4 MG/ML SYRINGE IM STA (15:43)
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
[2023-03-12] MEDS ORDERED: traMADol 50 MG STARTER PACK 3 TAB BTL PO STA (16:59)
[2023-03-12 17:31] VITALS: BP 120/83; PULSE 66; RESP 22; TEMP 98.2
== END 2023-03-12 17:28 | disposition home or self-care (01) ==
LOC: EC 15:24
DX: S92.401A Displaced unspecified fracture of right great toe, initial encounter for closed fracture (principal); F17.200 Nicotine dependence, unspecified, uncomplicated; F12.90 Cannabis use, unspecified, uncomplicated; Y04.0XXA Assault by unarmed brawl or fight, initial encounter
CPT/HCPCS: 73562; 73630; 99284; 96372; J2270